=== PATIENT | female | born 1970 | race Two or more races ===

== ENCOUNTER → 2017-03-24 | Outpatient (CLI) | payer OTHER ==
--- NOTE | 2017-03-24 09:14 | RAD ---
DATE: 03/24/2017 EXAM: DIGITAL SCREEN BILAT W/CAD HISTORY: Screening study. COMPARISON: 11/16/2015 and 10/16/2012 This study was interpreted with the benefit of Computerized Aided Detection (CAD). FINDINGS: Digital MLO and CC mammograms of both breasts were obtained. Comparison studies are dated 11/16/2015 and 10/26/2012. The breast parenchyma is heterogeneously dense which can obscure a lesion on mammography (breast density code C). An area of increased density is seen within the posterior medial aspect of the left breast on the CC view near the nipple which was not seen on the previous examination. This does not have a definite correlate on the MLO view. Further evaluation with spot compression CC and true lateral mammograms of the left breast is recommended. No dominant mass is seen within the right breast. No malignant appearing calcification or area of architectural distortion is seen. IMPRESSION: . An area of increased density is seen within the posterior medial aspect of the left breast on the CC view. Further evaluation with spot compression CC and true lateral mammograms of the left breast is recommended. BI-RADS CATEGORY: 0 INCOMPLETE: NEEDS ADDITIONAL IMAGING EVALUATION AND/OR PRIOR MAMMOGRAMS FOR COMPARISON. RECOMMENDED FOLLOW-UP: ADD ADDITIONAL IMAGING PQRS compliance statement: Patient information was entered into a reminder system with a target due date of now for the next mammogram. Mammography is a sensitive method for finding small breast cancers, but it does not detect them all and is not a substitute for careful clinical examination. A negative mammogram does not negate a clinically suspicious finding and should not result in delay in biopsying a clinically suspicious abnormality. "Our facility is accredited by the [employer] Mammography [employer]."
== END | disposition home or self-care (01) ==
LOC: MAMMO 08:04
PROVIDERS: ATTEND Family Medicine
DX: Z12.31 Encounter for screening mammogram for malignant neoplasm of breast (principal)
CPT/HCPCS: G0202; 77067

== ENCOUNTER → 2017-03-31 | Outpatient (CLI) | payer OTHER ==
--- NOTE | 2017-03-31 11:01 | RAD ---
DATE: 03/31/2017 EXAM: DIGITAL DIAGNOSTIC LT HISTORY: Call back for left breast density COMPARISON: 03/24/2017 This study was interpreted with the benefit of Computerized Aided Detection (CAD). FINDINGS: Breast Density: HETERO The breast parenchyma Is heterogeneously dense, which could reduce sensitivity of mammography. Breast parenchyma level C. On the spot compression view there is no suspicious mass or architectural distortion identified. IMPRESSION: Benign findings BI-RADS CATEGORY: 2 BENIGN FINDING RECOMMENDED FOLLOW-UP: 12M 12 MONTH FOLLOW-UP PQRS compliance statement: Patient information was entered into a reminder system with a target due date 03/24/2018 for the next mammogram. Mammography is a sensitive method for finding small breast cancers, but it does not detect them all and is not a substitute for careful clinical examination. A negative mammogram does not negate a clinically suspicious finding and should not result in delay in biopsying a clinically suspicious abnormality. "Our facility is accredited by the [employer] Mammography [employer]."
== END | disposition home or self-care (01) ==
LOC: MAMMO 10:37
PROVIDERS: ATTEND Family Medicine
DX: R92.8 Other abnormal and inconclusive findings on diagnostic imaging of breast (principal)
CPT/HCPCS: G0206; 77065

== ENCOUNTER → 2017-07-17 | Outpatient (CLI) | payer OTHER ==
--- NOTE | 2017-07-17 13:03 | RAD ---
Pelvic ultrasound, 07/17/2017: History: Left-sided pelvic pain Transabdominal and transvaginal scans were obtained. The uterus measures 8.2 x 5.2 x 7.1 cm. It demonstrates a heterogeneous echo pattern with at least 2 focal masses demonstrated. There is a 3.1 x 3.3 x 2.7 cm hypoechoic mass in the myometrium posteriorly. It measured approximately 2 cm in diameter on the 11/16/2015 study. There is a 2.8 x 1.9 x 2.3 cm hypoechoic mass in the fundal region. It was not clearly visualized on the previous study, apparently due to technical factors. The findings are compatible with uterine fibroids. There is distortion of the central uterine echo complex. Its best visualized portion measures 8 mm in AP dimension. The ovaries are of normal size. A 2.1 cm simple cyst is present in the right ovary. The adnexal regions are otherwise unremarkable. No free fluid is evident in the pelvis. IMPRESSION: 1. Enlarging uterine fibroids. 2. Small right ovarian cyst.
== END | disposition home or self-care (01) ==
LOC: US 10:37
PROVIDERS: ATTEND Family Medicine
DX: N83.201 Unspecified ovarian cyst, right side (principal); D25.9 Leiomyoma of uterus, unspecified
CPT/HCPCS: 76830; 76856

== ENCOUNTER → 2017-10-30 | Outpatient (CLI) | payer OTHER ==
[~2017-10-30] MED LIST: CONTRAST GIVEN MC; IOHEXOL 240 MG/ML 50ML VIAL. PO
[2017-10-30] MEDS: IOHEXOL 300 MG/ML 100ML VIAL. IV (12:01)
== END | disposition home or self-care (01) ==
LOC: CT 10:11
DX: D25.9 Leiomyoma of uterus, unspecified (principal)
CPT/HCPCS: 74177; Q9966; Q9967

== ENCOUNTER → 2018-04-01 | Outpatient (CLI) | payer OTHER | END | disposition home or self-care (01) | LOC: MAMMO 09:32 | DX: Z12.31 Encounter for screening mammogram for malignant neoplasm of breast (principal) | CPT/HCPCS: 77067 ==

== ENCOUNTER → 2019-05-18 | Outpatient (CLI) | payer OTHER ==
--- NOTE | 2019-05-18 14:39 | RAD ---
DATE: 05/18/2019 EXAM: DIGITAL SCREEN BILAT W/CAD HISTORY: Routine screening COMPARISON: 04/01/2018, 03/24/2017, and 11/16/2015 mammographic exams This study was interpreted with the benefit of Computerized Aided Detection (CAD). Breast Density: HETERO The breast parenchyma is heterogenously dense, which could reduce sensitivity of mammography. Breast parenchyma level C. FINDINGS: No suspicious calcifications or distortion. No mass. IMPRESSION: Stable BI-RADS CATEGORY: 1 NEGATIVE RECOMMENDED FOLLOW-UP: 12M 12 MONTH FOLLOW-UP PQRS compliance statement: Patient information was entered into a reminder system with a target due date in one year for the next mammogram. Mammography is a sensitive method for finding small breast cancers, but it does not detect them all and is not a substitute for careful clinical examination. A negative mammogram does not negate a clinically suspicious finding and should not result in delay in biopsying a clinically suspicious abnormality. "Our facility is accredited by the [employer] Mammography [employer]."
== END | disposition home or self-care (01) ==
LOC: MAMMO 08:05
PROVIDERS: ATTEND Family Medicine
DX: Z12.31 Encounter for screening mammogram for malignant neoplasm of breast (principal)
CPT/HCPCS: 77067

== ENCOUNTER → 2020-10-26 | Outpatient (CLI) | payer BC ==
--- NOTE | 2020-10-26 18:01 | RAD ---
Pelvic ultrasound to include transabdominal and transvaginal imaging 10/26/2020 CLINICAL HISTORY: Pelvic pain. TECHNIQUE: Using the distended urinary bladder as a sonographic window, a real-time ultrasound examin ation of the pelvis was performed. Multiple images were obtained. FINDINGS: Comparison is made to a CT scan of the abdomen and pelvis dated 10/30/2017. Additional paris rison is made to the patient's pelvic ultrasound dated 07/17/2017. The uterus is retroverted and mildly enlarged. It measures 8.6 x 6.9 x 4.9 cm longitudinal, transvers e, and AP dimensions. The endometrial echo complex measures 5 mm in thickness which is within normal limits. Rounded slightly heterogeneous mass lesions consistent with fibroids are seen involving the u terus. These measure 2 cm to 4.2 cm in size. Neither ovary is visualized due to overlying bowel gas. No adnexal mass is seen. No free fluid is not ed. IMPRESSION: Enlarged fibroid uterus. Otherwise negative study. Electronically signed by: Jasson Martinez MD (10/26/2020 5:58 PM) [id number]
== END ==
LOC: US 13:52
PROVIDERS: ATTEND Family Medicine
DX: N85.2 Hypertrophy of uterus (principal); D25.9 Leiomyoma of uterus, unspecified
CPT/HCPCS: 76700; 76830; 76856

== ENCOUNTER → 2020-10-30 | Outpatient (CLI) | payer BC ==
--- NOTE | 2020-10-30 17:24 | RAD ---
DATE: 10/30/2020 9:05 AM EXAM: DIGITAL SCREEN BILAT W/CAD HISTORY: Screening COMPARISON: 05/18/2019 Bilateral full field craniocaudal and mediolateral oblique images were obtained using digital technique. This study was interpreted with the benefit of Computerized Aided Detection (CAD). FINDINGS: Breast Density: HETERO The breast parenchyma Is heterogeneously dense, which could reduce sensitivity of mammography. Breast parenchyma level C No suspicious masses, microcalcifications or architectural distortion is present to suggest malignancy in either breast. The visualized axillae are unremarkable. IMPRESSION: No mammographic evidence of malignancy. BI-RADS CATEGORY: 1 NEGATIVE RECOMMENDED FOLLOW-UP: 12M 12 MONTH FOLLOW-UP Annual screening mammography is recommended, unless clinically indicated sooner based on symptoms or change in physical exam. PQRS compliance statement: Patient information was entered into a reminder system with a target due date for the next mammogram. Mammography is a sensitive method for finding small breast cancers, but it does not detect them all and is not a substitute for careful clinical examination. A negative mammogram does not negate a clinically suspicious finding and should not result in delay in biopsying a clinically suspicious abnormality. "Our facility is accredited by the [employer] Mammography [employer]."
== END ==
LOC: MAMMO 09:11
PROVIDERS: ATTEND Family Medicine
DX: Z12.31 Encounter for screening mammogram for malignant neoplasm of breast (principal)
CPT/HCPCS: 77067

== ENCOUNTER → 2022-01-29 | Outpatient (CLI) | payer OTHER ==
--- NOTE | 2022-01-29 14:49 | RAD ---
EXAMINATION: MG 2D BILAT SCREENING CLINICAL HISTORY: Screening TECHNIQUE: Digital craniocaudal and mediolateral oblique views of the bilateral breasts obtained. COMPARISON: 10/30/2020, 05/18/2019, 04/01/2018, 03/24/2017 BREAST COMPOSITION: The breasts are heterogeneously dense, which may obscure small masses. FINDINGS: No evidence of suspicious mass, calcifications, or areas of architectural distortion. IMPRESSION: No mammographic evidence of malignancy. BI-RADS ASSESSMENT: Category 1: Negative RECOMMENDATION: Return for routine bilateral screening mammogram in one year. PQRS compliance statement - Patient information was entered into a reminder system with a target due date for the next mammogram. "Our facility is accredited by the [employer] Mammography [employer]." Electronically signed by: Carson Rangel DO (01/29/2022 2:46 PM) [id number]
== END ==
LOC: MAMMO 08:45
PROVIDERS: ATTEND Family Medicine
DX: Z12.31 Encounter for screening mammogram for malignant neoplasm of breast (principal)
CPT/HCPCS: 77067

== ENCOUNTER → 2022-02-14 | Outpatient (CLI) | payer OTHER ==
--- NOTE | 2022-02-14 10:44 | RAD ---
Complete Abdominal Ultrasound: Clinical History: Reason: B/L UPPER QUADRANT PAIN / Spl. Instructions: / History: Technique: Sonographic examination of the abdomen was performed and multiple static images were obta ined. Findings: Liver: The majority is visualized and is mostly homogeneous. There is increased echogenicity and atte nuation of sound. There is a 2 cm cyst in the left lobe. Common bile duct: Appears normal measures 4 mm in diameter. Gallbladder: appears normal. Portal vein: Appears normal. Pancreas: is not well visualized due to overlying bowel gas but appears within normal limits. Right kidney: appears normal and measures 8 cm in length. Left kidney appears normal and measures 10 cm in length. The abdominal aorta is not well seen. Spleen: Not enlarged. Impression: 1. Atrophic right kidney. 2. Fatty changes in liver. 3.. No evidence of gallbladder disease. Electronically signed by: Bull Browning III, MD (02/14/2022 10:42 AM) [facility]
== END ==
LOC: US 07:31
PROVIDERS: ATTEND Family Medicine
DX: K76.0 Fatty (change of) liver, not elsewhere classified (principal); N26.1 Atrophy of kidney (terminal)
CPT/HCPCS: 76700